=== PATIENT | female | born 1990 | race Two or more races ===

== ENCOUNTER 2023-11-01 15:36 | Outpatient (CLI) | payer BC, SELFPAY ==
[2023-11-01 16:57] LABS: HCG,Quantitative 21 mIU/ml (0-5.42)
[2023-11-02 08:20] LABS: Progesterone 0.2 ng/mL (.)
== END 2023-11-01 23:59 ==
PROVIDERS: Visit Provider Obstetrics & Gynecology
DX: N92.6 Irregular menstruation, unspecified (principal)
CPT/HCPCS: 36415; 84144; 84702

== ENCOUNTER 2023-11-05 15:49 | Outpatient (CLI) | payer BC, SELFPAY ==
[2023-11-05 17:20] LABS: HCG,Quantitative 5 mIU/ml (0-5.42)
[2023-11-06 10:32] LABS: Progesterone 0.1 ng/mL (.)
== END 2023-11-05 23:59 ==
LOC: LAB 15:50
PROVIDERS: Visit Provider Obstetrics & Gynecology
DX: Z32.01 Encounter for pregnancy test, result positive (principal)
CPT/HCPCS: 36415; 84144; 84702

== ENCOUNTER 2023-11-30 11:04 | Outpatient (CLI) | payer BC, SELFPAY ==
[2023-11-30 11:20] LABS: Basophils % 0.8 % (0.1-2.0); Eosinophils # 0.1 K/mm3 (0.0-0.4); Eosinophils % 1.6 % (0.1-12.0); Hematocrit 40.6 % (37.0-47.0); Hemoglobin 12.9 g/dL (12.2-16.2); Lymphocytes # 1.3 K/mm3 (0.7-4.5); Lymphocytes % 30.8 % (10-50); Mean Corpuscular HGB Conc 31.8 g/dL (31.8-35.4); Mean Corpuscular Hemoglobin 30.1 pg (27.0-31.2); Mean Corpuscular Volume 94.8 fl (81-99); Monocytes # 0.2 K/mm3 (0.1-1.0); Monocytes % 5.5 % (1.7-9.3); Neutrophils # 2.7 K/mm3 (1.8-7.8); Neutrophils % 61.4 % (37.0-80.0); Platelet Count 323 K/mm3 (142-424); Red Blood Count 4.28 M/mm3 (4.20-5.40); Red Cell Distribution Width 13.3 % (11.5-17.5); White Blood Count 4.4 K/mm3 (4.8-10.8)
[2023-11-30 11:54] LABS: Chloride 102 mmol/L (98-107); Sodium 138 mmol/L (136-145)
[2023-11-30 11:55] LABS: Potassium 3.8 mmoL/L (3.5-5.1)
[2023-11-30 11:57] LABS: Alanine Aminotransferase 14 U/L (12-78); Albumin Level 4.4 g/dl (3.5-5.0); Albumin/Globulin Ratio 1.8 (1.1-1.8); Alkaline Phosphatase 64 U/L (38-126); Anion Gap 8.8 mEq/L (5-15); Aspartate Amino Transferase 21 U/L (14-36); Bilirubin,Total 0.8 mg/dl (0.2-1.3); Blood Urea Nitrogen 18 mg/dl (7-17); Carbon Dioxide 31 mmol/L (22.0-30.0); Estimated Glomerular Filt Rate 83 ml/min (>60); GFR (African American) 101 ML/MIN (>60); Globulin 2.4 g/dL (1.3-3.2); Total Protein,Serum 6.8 g/dl (6.3-8.2)
[2023-11-30 11:58] LABS: Glucose 80 mg/dl (74-100)
[2023-11-30 12:17] LABS: HCG,Quantitative < 2 mIU/ml (0-5.42)
== END 2023-11-30 23:59 ==
LOC: LAB 11:05
PROVIDERS: Visit Provider Obstetrics & Gynecology
DX: O03.9 Complete or unspecified spontaneous abortion without complication (principal)
CPT/HCPCS: 36415; 80053; 84702; 85025